=== PATIENT | male | born 1950 | race Caucasian/White ===

== ENCOUNTER 2021-12-01 09:30 | Inpatient (IN) ==
[2021-12-01] MEDS ORDERED: Morphine Sulfate 2 MG/ML SYRINGE IVP ONE (10:32)
[2021-12-01] MEDS ORDERED: 0.9 % Sodium Chloride 1,000 ML IVC ONE (11:37)
[2021-12-01 12:23] LABS: Basophils # 0.1 K/mcL (0.0-0.2); Basophils % 0.7 %; Eosinophils # 0.1 K/mcL (0.0-0.6); Eosinophils % 1.1 %; Hematocrit 42.2 % (37.5-50.1); Hemoglobin 13.9 g/dL (12.9-16.9); Immature Granulocytes % 0.4 % (0-4); Lymphocytes # 2.1 K/mcL (0.6-4.6); Lymphocytes % 17.3 %; Mean Corpuscular HGB Conc 32.9 g/dL (31.6-35.5); Mean Corpuscular Hemoglobin 29.7 pg (28.0-33.3); Mean Corpuscular Volume 90.2 fL (83.0-100.0); Mean Platelet Volume 10.5 fL (9.4-12.4); Monocytes # 0.6 K/mcL (0.0-1.3); Monocytes % 5.4 %; Neutrophils # 8.9 K/mcL (1.6-8.9); Platelet Count 454 K/mcL (140-400); Red Blood Count 4.68 M/mcL (4.19-5.50); Red Cell Distribution Width 14.3 % (11.5-14.5); Segmented Neutrophils % 75.1 %; White Blood Count 11.8 K/mcL (4.3-11.1)
[2021-12-01 12:27] LABS: INR 1.3; Prothrombin Time 14.1 Seconds (9.4-12.1)
[2021-12-01 12:30] LABS: Activated Partial Thrombo Time 26.7 Seconds (26.0-36.0)
[2021-12-01 12:37] LABS: Alanine Aminotransferase 22 Units/L (7-52); Albumin 3.8 g/dL (3.5-5.7); Albumin/Globulin Ratio 1.2 (1.1-2.2); Alkaline Phosphatase 73 Units/L (34-104); Aspartate Amino Transferase 21 Units/L (13-39); BUN/Creatinine Ratio 19 (6-26); Bilirubin,Total 0.6 mg/dL (0.3-1.0); Blood Urea Nitrogen 13 mg/dL (8-23); Calcium 8.6 mg/dL (8.6-10.3); Carbon Dioxide 26 mEq/L (23-29); Chloride 106 mEq/L (98-107); Globulin 3.3 g/dL (2.4-3.5); Glucose 123 mg/dL (70-105); Osmolality,Calculated 287 (280-300); Potassium 3.8 mEq/L (3.5-5.1); Sodium 138 mEq/L (136-145); Total Protein 7.1 g/dL (6.4-8.9)
[2021-12-01] MEDS ORDERED: Naloxone 0.4 MG/ML INJ IVP PRN (13:41)
[2021-12-01] MEDS ORDERED: *HR* HYDROmorphone (PF) 1 MG/ML SYRINGE IVP PRN (13:43)
[2021-12-01] MEDS: *HR* Heparin 5,000 UNIT/ML VIAL SQ SCH (19:53)
[2021-12-02] MEDS: 0.9 % Sodium Chloride 1,000 ML IVC SCH ×2 (00:36→13:21)
[2021-12-02 04:53] LABS: Basophils # 0.1 K/mcL (0.0-0.2); Basophils % 0.6 %; Eosinophils # 0.2 K/mcL (0.0-0.6); Eosinophils % 1.2 %; Hematocrit 40.6 % (37.5-50.1); Hemoglobin 13.7 g/dL (12.9-16.9); Immature Granulocytes % 0.3 % (0-4); Lymphocytes # 3.6 K/mcL (0.6-4.6); Lymphocytes % 22.8 %; Mean Corpuscular HGB Conc 33.7 g/dL (31.6-35.5); Mean Corpuscular Volume 88.8 fL (83.0-100.0); Mean Platelet Volume 10.6 fL (9.4-12.4); Monocytes # 1.5 K/mcL (0.0-1.3); Monocytes % 9.4 %; Neutrophils # 10.5 K/mcL (1.6-8.9); Platelet Count 432 K/mcL (140-400); Red Blood Count 4.57 M/mcL (4.19-5.50); Red Cell Distribution Width 14.6 % (11.5-14.5); Segmented Neutrophils % 65.7 %; White Blood Count 15.9 K/mcL (4.3-11.1)
[2021-12-02 05:09] LABS: BUN/Creatinine Ratio 18 (6-26); Blood Urea Nitrogen 14 mg/dL (8-23); Calcium 8.7 mg/dL (8.6-10.3); Carbon Dioxide 24 mEq/L (23-29); Chloride 105 mEq/L (98-107); Glucose 145 mg/dL (70-105); Osmolality,Calculated 287 (280-300); Potassium 3.6 mEq/L (3.5-5.1); Sodium 137 mEq/L (136-145)
[2021-12-02] MEDS: *HR* Heparin 5,000 UNIT/ML VIAL SQ SCH (05:23)
[2021-12-02] MEDS ORDERED: Acetaminophen IV 1,000 MG/100 ML BAG IVPB ONE (06:55)
[2021-12-02] MEDS ORDERED: Famotidine 20 MG/2 ML VIAL IVP ONE (06:55)
[2021-12-02] MEDS ORDERED: CeFAZolin Syr 2,000MG/20 ML 2,000 MG/20 ML SYRINGE IVPB ONE (06:56)
[2021-12-02] MEDS ORDERED: Ringers Solution, Lactated 1,000 ML IVC SCH (07:00)
[2021-12-02] MEDS ORDERED: Vancomycin 1,000 MG VIAL ONE ×2 (07:08→07:20)
[2021-12-02] MEDS ORDERED: Ketamine HCL *QUVA* 50mg (1mL) SYRINGE ONE (07:22)
[2021-12-02] MEDS ORDERED: *HR* Propofol 200 MG/20 ML VIAL IVP ONE ×2 (07:22→09:20)
[2021-12-02] MEDS ORDERED: *HR* Midazolam HCl 2 MG/2 ML VIAL ONE (07:22)
[2021-12-02] MEDS ORDERED: *HR* FentaNYL (PF) 100 MCG/2 ML VIAL ONE (07:22)
[2021-12-02] MEDS ORDERED: EPHEDrine sulfate 50 MG/10 ML VIAL IVP ONE (07:41)
[2021-12-02] MEDS ORDERED: Lidocaine -MPF 2% 5 ML VIAL ONE (08:55)
[2021-12-02] MEDS ORDERED: *HR* Succinylcholine 200 MG/10 ML VIAL IVP ONE (08:55)
[2021-12-02] MEDS ORDERED: Ondansetron 4 MG/2 ML VIAL ONE (08:55)
[2021-12-02] MEDS ORDERED: TOTAL JOINT MIXTURE (100ML) INTRAART ONE (11:55)
[2021-12-02] MEDS ORDERED: Povidone-Iodine 45 ML, Sodium Chloride IRRigation 1,000 ML IR ONE (11:55)
[2021-12-02] MEDS ORDERED: Sennosides 8.6 MG TABLET PO PRN (13:40)
[2021-12-02] MEDS ORDERED: MOM Conc 10 ML UD.LIQ PO PRN (13:40)
[2021-12-02] MEDS ORDERED: *HR* Promethazine 25 MG/ML VIAL IM PRN (13:40)
[2021-12-02] MEDS ORDERED: Ondansetron 4 MG/2 ML VIAL IVP PRN (13:40)
[2021-12-02] MEDS ORDERED: Naloxone 0.4 MG/ML INJ IVP PRN (13:40)
[2021-12-02] MEDS: Ketorolac 30 MG/ML VIAL IVP SCH ×2 (14:18→22:08)
[2021-12-02] MEDS: Ringers Solution, Lactated 1,000 ML IVC SCH (14:19)
[2021-12-02] MEDS ORDERED: Dextrose Gel 15 GM/37.5 ML TUBE PO PRN ×2 (15:19)
[2021-12-02] MEDS ORDERED: *HR* Dextrose 50 % in Water (Syg) 50 ML SYRINGE IVP PRN (15:19)
[2021-12-02] MEDS ORDERED: D5% in Water 1,000 ML IVC PRN (15:19)
[2021-12-02] MEDS: Insulin LISPRO 300 UNITS/3 ML VIAL SUBQ SCH (16:36)
[2021-12-02] MEDS: Ascorbic Acid 500 MG TABLET PO SCH (16:37)
[2021-12-02] MEDS: Venlafaxine XR (24 HR) 75 MG CAP.ER.24H PO SCH (16:39)
[2021-12-02] MEDS: CeFAZolin 2 GM/120 ML BAG IVPB SCH (16:49)
[2021-12-02] MEDS ORDERED: Famotidine 20 MG TABLET PO SCH (18:00)
[2021-12-02] MEDS ORDERED: Pregabalin 75 MG CAPSULE PO SCH (21:00)
[2021-12-02] MEDS: *HR* OxyCODONE Immed Rel 5 MG TABLET PO PRN (21:02)
[2021-12-03] MEDS: CeFAZolin 2 GM/120 ML BAG IVPB SCH (00:44)
[2021-12-03 02:16] LABS: Basophils % 0.2 %; Eosinophils % 0.1 %; Hematocrit 24.2 % (37.5-50.1); Immature Granulocytes % 0.3 % (0-4); Lymphocytes # 3.1 K/mcL (0.6-4.6); Mean Corpuscular HGB Conc 33.5 g/dL (31.6-35.5); Mean Corpuscular Hemoglobin 30.3 pg (28.0-33.3); Mean Corpuscular Volume 90.6 fL (83.0-100.0); Mean Platelet Volume 11.1 fL (9.4-12.4); Monocytes # 1.9 K/mcL (0.0-1.3); Monocytes % 10.9 %; Neutrophils # 12.3 K/mcL (1.6-8.9); Platelet Count 269 K/mcL (140-400); Red Blood Count 2.67 M/mcL (4.19-5.50); Red Cell Distribution Width 14.6 % (11.5-14.5); Segmented Neutrophils % 70.5 %; White Blood Count 17.4 K/mcL (4.3-11.1)
[2021-12-03 02:21] LABS: Hemoglobin 8.1 g/dL (12.9-16.9)
[2021-12-03 02:41] LABS: Calcium 6.7 mg/dL (8.6-10.3); Potassium 3.3 mEq/L (3.5-5.1)
[2021-12-03] MEDS ORDERED: Ketorolac 30 MG/ML VIAL IVP SCH (04:00)
[2021-12-03] MEDS: Ringers Solution, Lactated 1,000 ML IVC SCH ×2 (05:50→16:54)
[2021-12-03] MEDS ORDERED: Potassium Chloride Elixir 20 MEQ/15 ML UDC PO ONE (08:12)
[2021-12-03] MEDS: Multivit/Ca/Min/Fe/FA 1 TAB TABLET PO SCH (08:40)
[2021-12-03] MEDS: Ascorbic Acid 500 MG TABLET PO SCH ×2 (08:40→16:52)
[2021-12-03] MEDS: Insulin LISPRO 300 UNITS/3 ML VIAL SUBQ SCH ×3 (08:41→18:17)
[2021-12-03] MEDS: Venlafaxine XR (24 HR) 75 MG CAP.ER.24H PO SCH (08:58)
[2021-12-03] MEDS ORDERED: lisinopriL 20 MG TABLET PO SCH (09:00)
[2021-12-03] MEDS: Aspirin Enteric Coated 81 MG Tablet PO SCH ×2 (09:48→21:00)
[2021-12-03] MEDS: Pregabalin 75 MG CAPSULE PO SCH ×2 (09:48→21:00)
[2021-12-03] MEDS: *HR* OxyCODONE Immed Rel 5 MG TABLET PO PRN (16:53)
[2021-12-03] MEDS ORDERED: Famotidine 20 MG TABLET PO SCH (18:00)
[2021-12-04] MEDS: Ringers Solution, Lactated 1,000 ML IVC SCH (01:21)
[2021-12-04 02:09] LABS: Basophils # 0.1 K/mcL (0.0-0.2); Basophils % 0.5 %; Eosinophils # 0.3 K/mcL (0.0-0.6); Eosinophils % 1.6 %; Hematocrit 26.1 % (37.5-50.1); Hemoglobin 8.9 g/dL (12.9-16.9); Immature Granulocytes % 0.3 % (0-4); Lymphocytes # 3.4 K/mcL (0.6-4.6); Lymphocytes % 18.2 %; Mean Corpuscular HGB Conc 34.1 g/dL (31.6-35.5); Mean Corpuscular Hemoglobin 30.7 pg (28.0-33.3); Mean Platelet Volume 11.5 fL (9.4-12.4); Monocytes # 2.2 K/mcL (0.0-1.3); Monocytes % 11.5 %; Neutrophils # 12.7 K/mcL (1.6-8.9); Platelet Count 291 K/mcL (140-400); Red Cell Distribution Width 14.6 % (11.5-14.5); Segmented Neutrophils % 67.9 %; White Blood Count 18.7 K/mcL (4.3-11.1)
[2021-12-04 02:33] LABS: BUN/Creatinine Ratio 23 (6-26); Blood Urea Nitrogen 15 mg/dL (8-23); Calcium 7.8 mg/dL (8.6-10.3); Carbon Dioxide 26 mEq/L (23-29); Chloride 101 mEq/L (98-107); Glucose 183 mg/dL (70-105); Osmolality,Calculated 280 (280-300); Potassium 3.8 mEq/L (3.5-5.1); Sodium 132 mEq/L (136-145)
[2021-12-04 02:35] LABS: Alanine Aminotransferase 12 Units/L (7-52); Albumin 3.2 g/dL (3.5-5.7); Albumin/Globulin Ratio 1.1 (1.1-2.2); Alkaline Phosphatase 64 Units/L (34-104); Aspartate Amino Transferase 18 Units/L (13-39); BUN/Creatinine Ratio 22 (6-26); Bilirubin,Total 0.7 mg/dL (0.3-1.0); Blood Urea Nitrogen 14 mg/dL (8-23); Calcium 7.8 mg/dL (8.6-10.3); Carbon Dioxide 26 mEq/L (23-29); Chloride 102 mEq/L (98-107); Globulin 2.8 g/dL (2.4-3.5); Glucose 185 mg/dL (70-105); Osmolality,Calculated 281 (280-300); Potassium 3.9 mEq/L (3.5-5.1); Sodium 133 mEq/L (136-145)
[2021-12-04] MEDS ORDERED: Venlafaxine XR (24 HR) 75 MG CAP.ER.24H PO SCH (09:00)
[2021-12-04] MEDS: Multivit/Ca/Min/Fe/FA 1 TAB TABLET PO SCH (09:09)
[2021-12-04] MEDS: Pregabalin 75 MG CAPSULE PO SCH (09:10)
[2021-12-04] MEDS: Aspirin Enteric Coated 81 MG Tablet PO SCH (09:10)
[2021-12-04] MEDS: Ascorbic Acid 500 MG TABLET PO SCH (09:10)
[2021-12-04] MEDS: Insulin LISPRO 300 UNITS/3 ML VIAL SUBQ SCH ×2 (09:11→12:00)
[2021-12-04 15:09] VITALS: BP 158/68; PULSE 78; TEMP 97.7; O2SAT 96
[2021-12-04] MEDS ORDERED: Famotidine 20 MG TABLET PO SCH (18:00)
== END 2021-12-04 17:04 | disposition home health service (06) | DRG 522 ==
LOC: EMEROOARM 09:30 → 3ANU 16:23
PROVIDERS: ADMIT Internal Medicine; ATTEND Internal Medicine